=== PATIENT | female | born 2000 | race Two or more races ===

== ENCOUNTER 2021-07-08 23:31 | Emergency (ER) | payer OTHER ==
[~2021-07-08] VITALS: Ht 167.6 cm; Wt 54.4 kg
[2021-07-09] MEDS ORDERED: PEPCID40 MG PO (04:38)
[2021-07-09] MEDS ORDERED: ZOFRAN8 MG PO ×2 (04:38→04:39)
[2021-07-09] MEDS ORDERED: LEVSIN/SL0.125 MG SL ×2 (04:38→04:39)
== END 2021-07-09 04:59 ==
LOC: ER 23:31
DX: R10.13 Epigastric pain (principal)